=== PATIENT | female | born 1945 | race Asian ===

== ENCOUNTER 2017-12-28 19:10 | Emergency (ER) | payer MEDICARE, MEDICAID ==
[~2017-12-28] VITALS: Ht 162.6 cm; Wt 88.9 kg
[2017-12-28 19:29] VITALS: Ht 162.6 cm; Wt 88.9 kg
[2017-12-28 21:04] LABS: BASOPHIL % 0.8 % (0-2); PLATELET COUNT 211 x10^3mcL (130-400); RED CELL DISTRIBUTION WIDTH 13.7 % (11.5-14.5)
[2017-12-28 21:15] LABS: CALCIUM 8.8 mg/dL (8.5-10.1); CARBON DIOXIDE 26.5 mmol/L (21-32); CHLORIDE SERUM 107 mmol/L (98-107); CREATININE SERUM 0.8 mg/dL (0.6-1.0); GLUCOSE SERUM 97 mg/dL (74-106); POTASSIUM SERUM 4.1 mmol/L (3.5-5.1); SODIUM SERUM 140 mmol/L (136-145)
[2017-12-28 21:20] LABS: ALBUMIN 3.7 g/dL (3.4-5.0); ALKALINE PHOSPHATASE 96 U/L (46-116); ALT/SGPT 44 U/L (14-59); AST/SGOT 32 U/L (15-37); BILIRUBIN TOTAL 0.34 mg/dL (0.20-1.00); TOTAL PROTEIN, SERUM 7.3 g/dL (6.4-8.2)
[2017-12-28 21:59] LABS: ERYTHROCYTE SED RATE 27 mm/hr (0-30)
[2017-12-28 22:31] VITALS: BP 168/108
== END 2017-12-28 22:31 | disposition home or self-care (01) ==
LOC: ED 19:10
PROVIDERS: Emergency Medicine
DX: H11.31 Conjunctival hemorrhage, right eye (principal); I10 Essential (primary) hypertension; E78.00 Pure hypercholesterolemia, unspecified

== ENCOUNTER 2019-08-30 16:26 | Emergency (ER) | payer MEDICARE, MEDICAID ==
[~2019-08-30] VITALS: Ht 162.6 cm; Wt 86.2 kg
[2019-08-30 16:46] VITALS: Ht 162.6 cm; Wt 86.2 kg
[2019-08-30 17:44] LABS: BASOPHIL % 1.1 % (0-2); PLATELET COUNT 280 x10^3mcL (130-400); RED CELL DISTRIBUTION WIDTH 13.1 % (11.5-14.5)
[2019-08-30 17:59] LABS: CALCIUM 8.5 mg/dL (8.5-10.1); CARBON DIOXIDE 27.5 mmol/L (21-32); CHLORIDE SERUM 104 mmol/L (98-107); CREATININE SERUM 0.9 mg/dL (0.6-1.0); GLUCOSE SERUM 112 mg/dL (74-106); POTASSIUM SERUM 3.9 mmol/L (3.5-5.1); SODIUM SERUM 140 mmol/L (136-145)
[2019-08-30 18:04] LABS: ALBUMIN 3.5 g/dL (3.4-5.0); ALKALINE PHOSPHATASE 105 U/L (46-116); ALT/SGPT 16 U/L (14-59); AST/SGOT 15 U/L (15-37); BILIRUBIN TOTAL 0.4 mg/dL (0.20-1.00); TOTAL PROTEIN, SERUM 7.5 g/dL (6.4-8.2)
[2019-08-30 19:15] VITALS: BP 135/94
== END 2019-08-30 19:15 | disposition home or self-care (01) ==
LOC: ED 16:26
PROVIDERS: Emergency Medicine
DX: I16.0 Hypertensive urgency (principal); R51 Headache; E78.00 Pure hypercholesterolemia, unspecified
CPT/HCPCS: 36415; 83880; Q0092